=== PATIENT | female | born 1990 | race Caucasian/White ===

== ENCOUNTER 2018-05-08 11:02 | Emergency (ER) | payer SELFPAY ==
[2018-05-08 11:09] VITALS: BMI 23.8
[2018-05-08 12:15] LABS: SQUAMOUS EPITHIAL 1 /hpf (0-5); URINE BILIRUBIN NEGATIVE (NEGATIVE); URINE BLOOD NEGATIVE (NEGATIVE); URINE CLARITY Clear (Clear); URINE COLOR Colorless (YELLOW); URINE GLUCOSE (UA) NORMAL (Normal); URINE LEUKOCYTE ESTERASE NEG Leu/uL (Negative); URINE PROTEIN NEGATIVE (NEGATIVE); URINE UROBILINOGEN NORMAL mg/dL (0.2-1.0)
[2018-05-08 13:48] LABS: BASO % 0.9 % (0.0-2.0); EOS % 0.4 % (0.0-4.0); HEMOGLOBIN 13.7 g/dL (11.0-16.0); LYMPH # 1.3 K/uL (1.0-4.3); LYMPH % 31.3 % (20.0-40.0); MEAN CELL VOLUME 89.9 fL (81.0-99.0); MEAN CORPUSCULAR HEMOGLOBIN 30.9 pg (27.0-31.0); MEAN CORPUSCULAR HGB CONC 34.3 g/dL (33.0-37.0); MONO # 0.4 K/uL (0.0-0.8); MONO % 9.8 % (0.0-10.0); NEUT # 2.3 K/uL (1.8-7.0); NEUT % 57.6 % (50.0-75.0); RBC 4.42 Mil/uL (3.80-5.20); RED CELL DISTRIBUTION WIDTH 12.9 % (11.5-14.5)
--- NOTE | 2018-05-08 13:59 | RAD ---
Date of service: 05/08/2018 HISTORY: head pain, nausea COMPARISON: No prior. FINDINGS: LUNGS: The lungs are well inflated and clear. PLEURA: No significant pleural effusion identified, no pneumothorax apparent. CARDIOVASCULAR: Normal. OSSEOUS STRUCTURES: No significant abnormalities. VISUALIZED UPPER ABDOMEN: Normal. OTHER FINDINGS: None. IMPRESSION: No active pulmonary disease.
--- NOTE | 2018-05-08 14:01 | CT ---
Date of service: 05/08/2018 PROCEDURE: CT HEAD WITHOUT CONTRAST. HISTORY: head pain, nausea, numbness, temporary blindness COMPARISON: None available. TECHNIQUE: Axial computed tomography images were obtained through the head/brain without intravenous contrast. Radiation dose: Total exam DLP = mGy-cm. This CT exam was performed using one or more of the following dose reduction techniques: Automated exposure control, adjustment of the mA and/or kV according to patient size, and/or use of iterative reconstruction technique. FINDINGS: HEMORRHAGE: No intracranial hemorrhage. BRAIN: No mass effect or edema. No atrophy or chronic microvascular ischemic changes. VENTRICLES: Unremarkable. No hydrocephalus. CALVARIUM: Unremarkable. PARANASAL SINUSES: Unremarkable as visualized. No significant inflammatory changes. MASTOID AIR CELLS: Unremarkable as visualized. No inflammatory changes. OTHER FINDINGS: None. IMPRESSION: Normal CT of the Head.
[2018-05-08 14:19] LABS: BLOOD UREA NITROGEN 9 mg/dL (7-17); GFR AFRICAN-AMERICAN > 60; GFR NON-AFRICAN AMERICAN > 60
[2018-05-08 14:20] LABS: ALB/GLOB RATIO 1.4 (1.0-2.1); ALBUMIN 4.6 g/dL (3.5-5.0); ALT/SGPT 38 U/L (9-52); AST/SGOT 28 U/L (14-36); CALCIUM 9.5 mg/dl (8.6-10.4)
--- NOTE | 2018-05-08 14:58 | C.PDOC ---
History Of Present Illness 28yo female, otherwise well and with no known past medical history, comes to ER with complaints of pressure to the base of her skull x 1 year. Patient also states for 1 week, she has had persistent nausea. She states early this morning , she woke up from sleep due to sudden numbness of bilateral arms and blindness in bilateral eyes. She states all of her symptoms have now resolved. She does report persistent nausea but denies any vomiting or decreased PO intake. She denies any fever, chills, diarrheas, constipation or URI symptoms. Time Seen by Provider: 05/08/18 12:10 Chief Complaint (Nursing): GI Problem History Per: Patient History/Exam Limitations: no limitations Onset/Duration Of Symptoms: Persistent Current Symptoms Are (Timing): Still Present Associated Symptoms: Nausea. denies: Fever, Chills, Vomiting, Diarrhea, Loss Of Appetite, Back Pain, Chest Pain, Constipation, Urinary Symptoms Additional History Per: Patient Past Medical History Reviewed: Historical Data, Nursing Documentation, Vital Signs Vital Signs: Last Vital Signs Temp 99.3 F 05/08/18 11:08 Pulse 79 05/08/18 15:39 Resp 16 05/08/18 15:39 BP 116/66 05/08/18 15:39 Pulse Ox 95 05/08/18 15:39 - Medical History PMH: No Chronic Diseases Surgical History: No Surg Hx Family History: States: No Known Family Hx - Social History Hx Alcohol Use: No Hx Substance Use: Yes (franklin) Review Of Systems Except As Marked, All Systems Reviewed And Found Negative. Constitutional: Negative for: Fever, Chills Eyes: Positive for: Vision Change (vision loss but now resolved) ENT: Negative for: Throat Pain Cardiovascular: Negative for: Chest Pain Respiratory: Negative for: Cough, Shortness of Breath Gastrointestinal: Positive for: Nausea. Negative for: Vomiting, Abdominal Pain Neurological: Positive for: Numbness (numbness in bilateral arms, now resolved) , Other (pressure to base of skull) Physical Exam - Physical Exam Appears: Non-toxic, No Acute Distress Skin: Normal Color, Warm, Dry Head: Atraumatic, Normacephalic Eye(s): bilateral: Normal Inspection, PERRL, EOMI Oral Mucosa: Moist Neck: Normal ROM, No Midline Cervical Tenderness, No Paracervical Tenderness, Supple Chest: Symmetrical, No Tenderness Cardiovascular: Rhythm Regular Respiratory: Normal Breath Sounds Gastrointestinal/Abdominal: Soft, No Tenderness, No Guarding, No Rebound Back: Normal Inspection, No CVA Tenderness, No Vertebral Tenderness Extremity: Normal ROM, No Pedal Edema, Capillary Refill (< 2 seconds), No Deformity, Other (distal sensations intact) Neurological/Psych: Oriented x3, Normal Speech, Normal Cognition, Normal Motor, Normal Sensation Gait: Steady ED Course And Treatment - Laboratory Results Result Diagrams: 05/08/18 13:45 05/08/18 13:45 O2 Sat by Pulse Oximetry: 97 (RA) Pulse Ox Interpretation: Normal - CT Scan/US CT Head Other Rad Studies (CT/US): Radiology Report Reviewed CT/US Interpretation: FINDINGS: HEMORRHAGE: No intracranial hemorrhage. BRAIN : No mass effect or edema. No atrophy or chronic microvascular ischemic changes. VENTRICLES: Unremarkable. No hydrocephalus. CALVARIUM: Unremarkable. PARANASAL SINUSES: Unremarkable as visualized. No significant inflammatory changes. MASTOID AIR CELLS: Unremarkable as visualized. No inflammatory changes. OTHER FINDINGS: None. IMPRESSION: Normal CT of the Head. Medical Decision Making Medical Decision Making: Plan: -- Labs -- EKG -- CT Head -- Urinalysis 1428 CT head report reviewed, no acute findings. MRI Brain ordered. Disposition Counseled Patient/Family Regarding: Studies Performed, Need For Followup - Disposition Referrals: [facility] [Outside] Disposition: HOME/ ROUTINE Disposition Time: 17:44 Condition: STABLE Instructions: Headache, Adult (DC) Forms: [facility] ([place]), Work Excuse - POA Present On Arrival: None - Clinical Impression Clinical Impression: Head ache, Numbness - Scribe Statement The provider has reviewed the documentation as recorded by the Severiano Torres Provider Attestation: All medical record entries made by the Severiano were at my direction and personally dictated by me. I have reviewed the chart and agree that the record accurately reflects my personal performance of the history, physical exam, medical decision making, and the department course for this patient. I have also personally directed, reviewed, and agree with the discharge instructions and disposition.
[2018-05-08 16:10] VITALS: PULSE 79; RESP 16
[2018-05-08 16:52] LABS: BARBITURATES, UR NEGATIVE (NEGATIVE); BENZODIAZEPINES, UR NEGATIVE (NEGATIVE); OPIATES, UR NEGATIVE (NEGATIVE); PHENCYCLIDINE, UR NEGATIVE (NEGATIVE)
--- NOTE | 2018-05-08 17:05 | MRI ---
Date of service: 05/08/2018 PROCEDURE: MRI BRAIN WITH AND WITHOUT CONTRAST HISTORY: sudden numbness, blindness, head ache COMPARISON: None. TECHNIQUE: Multiplanar, multisequence MR images of the brain were obtained with and without intravenous contrast enhancement. FINDINGS: HEMORRHAGE: None DWI: No evidence of an acute or early subacute infarction. BRAIN PARENCHYMA: No mass,mass effect or edema. No atrophy or chronic microvascular ischemic changes. ENHANCEMENT: No abnormal intracranial enhancement. VENTRICLES: Unremarkable. No hydrocephalus. CRANIUM: Unremarkable. ORBITS: Grossly unremarkable. PARANASAL SINUSES/MASTOIDS: Clear VASCULAR SYSTEM: Skull base flow voids intact. OTHER FINDINGS: None . IMPRESSION: Unremarkable pre and post contrast enhanced MRI of the brain.
[2018-05-08 17:54] VITALS: O2SAT 97
[2018-05-08 18:02] VITALS: BP 109/71; TEMP 99.1
--- NOTE | 2018-05-09 20:49 | CARD ---
APPROVED REPORT Date of service: 05/08/2018 EKG Measurement Heart [id number] <Conclusion> Normal sinus rhythm Normal ECG
== END 2018-05-08 18:02 | disposition home or self-care (01) ==
LOC: C.ER 11:02
DX: R51 Headache (principal); R20.0 Anesthesia of skin
CPT/HCPCS: 70450; 70552; 71045; 80053; 81001; 85025; 93005; 99285; G0480